=== PATIENT | male | born 1970 | race Caucasian/White ===

== ENCOUNTER → 2017-06-20 | Outpatient (CLI) | payer OTHER ==
[~2017-06-20] MED LIST: APRESOLINE10 MG PO; ASPIRIN325 MG PO; BACTROBAN 2% OI22 GM NOSE; CPAP; CPAP NOSE; CRESTOR40 MG PO; HYZAAR 100-251 EACH PO; LEVOTHROID (SY50 MCG PO; LOPRESSOR50 MG PO; NORCO 5-325 MG1 TAB PO; NORVASC10 MG PO; OCEAN NASAL) (A44 ML NOSE; PREDNISONE20 MG PO; TEARGEN1 BOT OPHTH; TRICOR145 MG PO; TYLENOL325 MG PO
== END | disposition disaster alternative care site (69) ==
LOC: GRAD 08:26
DX: S83.241A Other tear of medial meniscus, current injury, right knee, initial encounter (principal); M17.11 Unilateral primary osteoarthritis, right knee; M25.461 Effusion, right knee; X58.XXXA Exposure to other specified factors, initial encounter